=== PATIENT | male | born 1980 | race Caucasian/White ===

== ENCOUNTER 2023-12-27 16:15 | Outpatient (RCR) | payer BC, SELFPAY ==
[2023-11-30] VITALS (8 sets, daily range): BP systolic 99–132; BP diastolic 60–80; PULSE 66–86; RESP 16–20; TEMP 35.7–36.9; O2SAT 94–98
== END 2024-05-28 23:59 | disposition home or self-care (01) ==
LOC: CCIC 16:15
PROVIDERS: Visit Provider Clinical Nurse Specialist
DX: D64.9 Anemia, unspecified (principal)
CPT/HCPCS: 36415; 36430; 86850; 86900; 86901; 86922; P9016

== ENCOUNTER 2024-09-01 11:03 | Outpatient (RCR) | payer BC, SELFPAY ==
[2024-09-01] VITALS (7 sets, daily range): BP systolic 107–139; BP diastolic 68–84; PULSE 74–88; RESP 14–20; TEMP 35.8–37; O2SAT 84–95
== END 2025-02-28 23:59 | disposition home or self-care (01) ==
LOC: CCIC 11:03
PROVIDERS: PCP Orthopaedic Surgery; Visit Provider Clinical Nurse Specialist
DX: D50.9 Iron deficiency anemia, unspecified (principal)
CPT/HCPCS: 36415; 36430; 86850; 86900; 86901; 86922; P9016